=== PATIENT | male | born 1965 | race Caucasian/White ===

== ENCOUNTER 2018-09-15 15:14 | Emergency (ER) | payer OTHER ==
[2018-09-15] MEDS ORDERED: ASPIRIN 81 MG TABLET, CHEWABLE PO ONE (15:47)
--- NOTE | 2018-09-15 15:50 | ER Document Report ---
ED Medical Screen (RME) - General Chief Complaint: Chest Pain Stated Complaint: CHEST PAIN Time Seen by Provider: 09/15/18 15:44 Mode of Arrival: Ambulatory Information source: Patient Notes: 53-year-old male presented to ED for complaint of chest pain. He states he went to his primary care doctor to have it checked out and they sent him to the ED after doing a EKG that had some minor changes. Patient states that the primary care wanted to cardiac work-up completed but she did think it was anything major. Patient is alert oriented respirations regular and unlabored speaking in full sentences. He does have a history of coronary artery disease blood pressure and cholesterol but no other medical history. He does not smoke drinks maybe 2 drinks a year and lives with his mother. Patient is in no acute distress at this time. I have greeted and performed a rapid initial assessment of this patient. A comprehensive ED assessment and evaluation of the patient, analysis of test r esults and completion of medical decision making process will be conducted by an additional ED providers. TRAVEL OUTSIDE OF THE [place] IN LAST 30 DAYS: No Past Medical History - Social History Chew tobacco use (# tins/day): No Frequency of alcohol use: Rare Drug Abuse: None - Past Medical History Cardiac Medical History: Reports: Hx Hypercholesterolemia Pulmonary Medical History: Reports: Hx Asthma Endocrine Medical History: Comment Only: Hx Diabetes Mellitus Type 2 - diet controlled in past Renal/ Medical History: Denies: Hx Peritoneal Dialysis Musculoskeltal Medical History: Reports Hx Arthritis Physical Exam - Vital signs Vitals: Temp Pulse Resp BP Pulse Ox 98.0 F 84 16 137/91 H 99 09/15/18 15:24 09/15/18 15:24 09/15/18 15:24 09/15/18 15:24 09/15/18 15:24 Course - Vital Signs Vital signs: Temp Pulse Resp BP Pulse Ox 98.0 F 84 16 137/91 H 99 09/15/18 15:24 09/15/18 15:24 09/15/18 15:24 09/15/18 15:24 09/15/18 15:24
[2018-09-15 16:33] LABS: ABSOLUTE BASOPHILS # (AUTO) 0.1 10^3/uL (0.0-0.2); ABSOLUTE LYMPHOCYTES (AUTO) 1.9 10^3/uL (0.5-4.7); ABSOLUTE MONOCYTES (AUTO) 0.5 10^3/uL (0.1-1.4); ABSOLUTE NEUT (AUTO) 6.1 10^3/uL (1.7-8.2); APPEARANCE,URINE CLEAR; BASOPHILS % (AUTO) 0.7 % (0-2); BILIRUBIN,URINE NEGATIVE (NEGATIVE); COLOR,URINE YELLOW; EOSINOPHILS % (AUTO) 0.6 % (0-6); GLUCOSE, URINE NEGATIVE (NEGATIVE); HEMATOCRIT 43.3 % (37.9-51.0); HEMOGLOBIN 14.7 g/dL (13.5-17.0); KETONES,URINE NEGATIVE (NEGATIVE); LEUKOCYTE ESTERASE,URINE NEGATIVE (NEGATIVE); LYMPHOCYTES % (AUTO) 22.2 % (13-45); MEAN CORPUSCULAR HEMOGLOBIN 31.8 pg (27.0-33.4); MEAN CORPUSCULAR HGB CONC 33.9 g/dL (32.0-36.0); MEAN CORPUSCULAR VOLUME 94 fl (80-97); MONOCYTES % (AUTO) 6.3 % (3-13); NITRITE,URINE NEGATIVE (NEGATIVE); PLATELET COUNT 235 10^3/uL (150-450); PROTEIN,URINE NEGATIVE (NEGATIVE); RED BLOOD COUNT 4.61 10^6/uL (4.35-5.55); RED CELL DISTRIBUTION WIDTH 12.9 % (11.5-14.0); SEGMENTED NEUTROPHILS % (AUTO) 70.2 % (42-78); TOTAL CELLS COUNTED % (AUTO) 100 %; URINE SPECIFIC GRAVITY 1.034; UROBILINOGEN,URINE NEGATIVE mg/dL (<2.0); WHITE BLOOD COUNT 8.7 10^3/uL (4.0-10.5)
--- NOTE | 2018-09-15 16:33 | RADIOLOGY REPORT (SQ) ---
EXAM DESCRIPTION: CHEST 2 VIEWS COMPLETED DATE/TIME: 09/15/2018 4:23 pm REASON FOR STUDY: chest pain, md sent change in ekg COMPARISON: None. TECHNIQUE: Frontal and lateral radiographic views of the chest acquired. NUMBER OF VIEWS: Two view. LIMITATIONS: None. FINDINGS: LUNGS AND PLEURA: No opacities, masses or pneumothorax. No pleural effusion. MEDIASTINUM AND HILAR STRUCTURES: No masses or contour abnormalities. HEART AND VASCULAR STRUCTURES: Heart normal size. No evidence for failure. BONES: No acute findings. HARDWARE: None in the chest. OTHER: No other significant finding. IMPRESSION: NO SIGNIFICANT RADIOGRAPHIC FINDING IN THE CHEST. TECHNICAL DOCUMENTATION: JOB ID: [id number] [employer]- All Rights Reserved Reading location - IP/workstation name: [email or web address]
[2018-09-15 16:51] LABS: ALANINE AMINOTRANSFERASE 49 U/L (21-72); ALBUMIN 4.3 g/dL (3.5-5.0); ALKALINE PHOSPHATASE 90 U/L (38-126); ANION GAP 9 (5-19); ASPARTATE AMINO TRANSFERASE 28 U/L (17-59); BILIRUBIN,DIRECT 0.3 mg/dL (0.0-0.4); BILIRUBIN,TOTAL 0.6 mg/dL (0.2-1.3); BLOOD UREA NITROGEN 17 mg/dL (7-20); CALCIUM 9.7 mg/dL (8.4-10.2); CARBON DIOXIDE 28 mmol/L (22-30); CHLORIDE 107 mmol/L (98-107); GLUCOSE 99 mg/dL (75-110); LIPASE 106.7 U/L (23-300); POTASSIUM 4.1 mmol/L (3.6-5.0); SODIUM 143.7 mmol/L (137-145); TOTAL PROTEIN 7.5 g/dL (6.3-8.2)
[2018-09-15 17:02] LABS: TROPONIN I < 0.012 ng/mL
[2018-09-15] MEDS ORDERED: MORPHINE SULFATE 10 MG/ML INJ IV ONE (18:20)
[2018-09-15] MEDS ORDERED: IPRATROPIUM/ALBUTEROL 0.5-2.5 MG/3 ML AMPUL NEB ONE (18:20)
[2018-09-15] MEDS ORDERED: ONDANSETRON HCL INJ/PF 4 MG/2 ML SDV IV ONE (18:20)
--- NOTE | 2018-09-15 18:39 | ER Document Report ---
ED General - General Chief Complaint: Chest Pain Stated Complaint: CHEST PAIN Time Seen by Provider: 09/15/18 15:44 Primary Care Provider: ISIDRA PRINCE MD [Primary Care Provider] - Follow up as needed Mode of Arrival: Ambulatory Information source: Patient Notes: Patient is a well-appearing 53-year-old male with history of asthma, hypertension, hyperlipidemia who is complaining of chest pain that began this morning around 9 AM. Patient reports his pain is constant and describes it as a deep aching pain located in his left chest wall that radiates down his left arm and into his scapula. His pain is worse with arm movement, coughing, or deep inspiration. Patient has history of panic attacks and originally thought that was the cause of his chest pain however he is concerned he might be having a heart attack. Patient was seen by his PCP today and was told to come to the ED due his symptoms of chest pain and minor changes in his EKG. Patient reports he has a chronic cough due to his asthma for which he takes as needed albuterol. Patient reports he often has "fits" of coughing and does note he has been coughing more often possibly due to seasonal allergies. TRAVEL OUTSIDE OF THE [place] IN LAST 30 DAYS: No - HPI Onset: This morning Onset/Duration: Sudden Quality of pain: Burning, Sharp Severity: Mild Associated symptoms: Chest pain, Nonproductive cough - chronic. denies: Body /muscle aches, Fever, Headache, Hoarseness, Nausea, Vomiting Exacerbated by: Movement, Coughing, Deep breathing Relieved by: Denies Similar symptoms previously: No Recently seen / treated by doctor: Yes Past Medical History - General Information source: Patient - Social History Smoking Status: Unknown if Ever Smoked Chew tobacco use (# tins/day): No Frequency of alcohol use: Rare Drug Abuse: None Lives with: Family Family History: Reviewed & Not Pertinent Patient has suicidal ideation: No Patient has homicidal ideation: No - Past Medical History Cardiac Medical History: Reports: Hx Hypercholesterolemia Pulmonary Medical History: Reports: Hx Asthma Endocrine Medical History: Comment Only: Hx Diabetes Mellitus Type 2 - diet controlled in past Renal/ Medical History: Denies: Hx Peritoneal Dialysis Musculoskeletal Medical History: Reports Hx Arthritis Review of Systems - Review of Systems Constitutional: denies: Chills, Fever, Malaise, Weakness Cardiovascular: Chest pain. denies: Palpitations, Heart racing, Syncope, Dizziness, Lightheaded Respiratory: Cough, Short of breath. denies: Hemoptysis, Sputum Gastrointestinal: denies: Abdominal pain, Diarrhea, Nausea, Constipation Genitourinary: denies: Burning, Dysuria, Discharge, Flank pain Physical Exam - Vital signs Vitals: Temp Pulse Resp BP Pulse Ox 98.0 F 84 16 137/91 H 99 09/15/18 15:24 09/15/18 15:24 09/15/18 15:24 09/15/18 15:24 09/15/18 15:24 - Notes Notes: PHYSICAL EXAMINATION: GENERAL: Well-appearing, well-nourished and in no acute distress. HEAD: Atraumatic, normocephalic. EYES: Pupils equal round and reactive to light, extraocular movements intact, sclera anicteric, conjunctiva are normal. ENT: Nares patent, oropharynx clear without exudates. Moist mucous membranes. NECK: Normal range of motion, supple without lymphadenopathy LUNGS: Breath sounds clear to auscultation bilaterally and equal. No wheezes rales or rhonchi. Persistent harsh cough HEART: Regular rate and rhythm without murmurs ABDOMEN: Soft, nontender, nondistended abdomen. No guarding, no rebound. No masses appreciated. Musculoskeletal: Normal range of motion, no pitting or edema. No cyanosis. NEUROLOGICAL: Cranial nerves grossly intact. Normal speech, normal gait. Normal sensory, motor exams PSYCH: Normal mood, normal affect. SKIN: Warm, Dry, normal turgor, no rashes or lesions noted. Course - Re-evaluation Re-evalutation: Laboratory 09/15/18 09/15/18 09/15/18 16:11 16:11 16:11 WBC 8.7 RBC 4.61 Hgb 14.7 Hct 43.3 MCV 94 MCH 31.8 MCHC 33.9 RDW 12.9 Plt Count 235 Seg Neutrophils % 70.2 Lymphocytes % 22.2 Monocytes % 6.3 Eosinophils % 0.6 Basophils % 0.7 Absolute Neutrophils 6.1 Absolute Lymphocytes 1.9 Absolute Monocytes 0.5 Absolute Eosinophils 0.0 Absolute Basophils 0.1 Sodium 143.7 Potassium 4.1 Chloride 107 Carbon Dioxide 28 Anion Gap 9 BUN 17 Creatinine 0.87 Est GFR ( Amer) > 60 Est GFR (Non-Af Amer) > 60 Glucose 99 Calcium 9.7 Total Bilirubin 0.6 Direct Bilirubin 0.3 Neonat Total Bilirubin Not Reportable Neonat Direct Bilirubin Not Reportable Neonat Indirect Bili Not Reportable AST 28 ALT 49 Alkaline Phosphatase 90 CK-MB (CK-2) 0.80 Troponin I < 0.012 Total Protein 7.5 Albumin 4.3 Lipase 106.7 Urine Color Urine Appearance Urine pH Ur Specific Man[place] Urine Protein Urine Glucose (UA) Urine Ketones Urine Blood Urine Nitrite Urine Bilirubin Urine Urobilinogen Ur Leukocyte Esterase Urine WBC (Auto) Urine RBC (Auto) Squamous Epi Cells Auto Urine Mucus (Auto) Urine Ascorbic Acid 09/15/18 16:11 WBC RBC Hgb Hct MCV MCH MCHC RDW Plt Count Seg Neutrophils % Lymphocytes % Monocytes % Eosinophils % Basophils % Absolute Neutrophils Absolute Lymphocytes Absolute Monocytes Absolute Eosinophils Absolute Basophils Sodium Potassium Chloride Carbon Dioxide Anion Gap BUN Creatinine Est GFR ( Amer) Est GFR (Non-Af Amer) Glucose Calcium Total Bilirubin Direct Bilirubin Neonat Total Bilirubin Neonat Direct Bilirubin Neonat Indirect Bili AST ALT Alkaline Phosphatase CK-MB (CK-2) Troponin I Total Protein Albumin Lipase Urine Color YELLOW Urine Appearance CLEAR Urine pH 5.0 Ur Specific [place] 1.034 Urine Protein NEGATIVE Urine Glucose (UA) NEGATIVE Urine Ketones NEGATIVE Urine Blood NEGATIVE Urine Nitrite NEGATIVE Urine Bilirubin NEGATIVE Urine Urobilinogen NEGATIVE Ur Leukocyte Esterase NEGATIVE Urine WBC (Auto) 1 Urine RBC (Auto) 1 Squamous Epi Cells Auto <1 Urine Mucus (Auto) MOD Urine Ascorbic Acid 40 H Chest X-Ray 09/15/18 15:48 IMPRESSION: NO SIGNIFICANT RADIOGRAPHIC FINDING IN THE CHEST. Temp Pulse Resp BP Pulse Ox 98.9 F 91 20 122/80 95 09/15/18 19:48 09/15/18 19:48 09/15/18 19:48 09/15/18 19:48 09/15/18 19:48 09/16/18 12:52 53-year-old male with asthma presents with complaint of persistent cough for 3 weeks. Patient complaining of associated chest pain. Vital signs reviewed all within normal limits. Patient does not appear toxic or dehydrated. He is in no acute distress. Exam is consistent for a persistent harsh cough. No wheezing, rhonchi, increased work of breathing, hypoxia. Patient does report extreme sensitivity to smells, pollen. He does not have his rescue inhaler. Patient did receive breathing treatments, Robitussin and on reevaluation cough has improved. Patient was provided an albuterol MDI from the emergency department. Patient was discharged home on prednisone and Robitussin Patient was evaluated and treated as appropriate for the patient's presenting symptoms and complaint, with consideration of any critical or life threatening conditions that may be associated with their obtained history and exam as noted above. All results were discussed with patient . Patient provided the opportunity to ask questions, and express concerns. Patient was educated on ernie tments based on their presumed diagnosis as noted above. At this time we will discharge the patient with return precautions and follow-up recommendations. Verbal discharge instructions given a the bedside. Medication warnings reviewed. Patient is in agreement with this plan and has verbalized understanding of return precautions. After careful consideration I feel that that patient can be safely discharged from the emergency department, they were advised to followup with a primary care physician in 2-3 days. Dictation on this chart was performed using voice recognition software and may result in unintended grammatical, spelling, syntax or errors. - Vital Signs Vital signs: Temp Pulse Resp BP Pulse Ox 98.9 F 91 20 122/80 95 09/15/18 19:48 09/15/18 19:48 09/15/18 19:48 09/15/18 19:48 09/15/18 19:48 - Laboratory Result Diagrams: 09/15/18 16:11 09/15/18 16:11 Laboratory results interpreted by me: 09/15/18 16:11 Urine Ascorbic Acid 40 H Discharge - Discharge Clinical Impression: Bronchitis Asthma exacerbation Qualifiers: Asthma severity: moderate Asthma persistence: unspecified Qualified Code(s): J45.901 - Unspecified asthma with (acute) exacerbation Condition: Good Disposition: HOME, SELF-CARE Instructions: Asthma ([facility]), Bronchitis ([facility]), Bronchitis With Bronchospasm (Wheezing) ([facility]), Chest Wall Pain ([facility]) Additional Instructions: You were seen for symptoms most consistent with bronchitis. This can take up to 12 weeks to fully resolve. This is generally due to a viral infection. Please follow-up with your primary doctor in the next 2-3 days. Return if you develop worsening cough, vomiting, fever >100.4, pass out, begin coughing blood, or have any other symptoms that are concerning to you. Please use the medications prescribed today as directed. Prescriptions: Guaifenesin/Codeine Phos [Robitussin-AC Syrup 59 ml] 10 ml PO QHS PRN #75 ml PRN Reason: Cough RX: Prednisolone Sod Phosphate 15 mg PO DAILY 3 Days #15 ml Referrals: ISIDRA PRINCE MD [Primary Care Provider] - Follow up as needed
[2018-09-15] MEDS ORDERED: GUAIFENESIN/CODEINE PHOS 100-10 MG/ 5 ML UDC PO ONE (18:47)
[2018-09-15] MEDS ORDERED: PREDNISONE 20 MG TABLET PO ONE (18:48)
[2018-09-15] MEDS ORDERED: ALBUTEROL SULFATE HFA (90 MCG/PUFF) 8 GM MDI (1 MDI/ER DISP) IH PRN (19:29)
[2018-09-15 19:50] VITALS: BP 122/80
== END 2018-09-15 19:50 | disposition home or self-care (01) ==
LOC: ER 15:14
DX: J45.901 Unspecified asthma with (acute) exacerbation (principal); R05 Cough; R07.89 Other chest pain; I10 Essential (primary) hypertension; E11.9 Type 2 diabetes mellitus without complications; R06.02 Shortness of breath
CPT/HCPCS: 94640; 99285; 36415; 82553; 83690; 85025; 80053; 81001; 84484; 71046; J7512; J3490; J7620